=== PATIENT | female | born 1930 | race Caucasian/White ===

== ENCOUNTER 2016-09-10 01:43 | Emergency (ER) | payer OTHER, BC ==
[~2016-09-10] VITALS: Ht 162.6 cm; Wt 102.8 kg
[~2016-09-10 01:43] MED LIST: ALBUTEROL SULF8.5 GM IH; CELECOXIB200 MG PO; CILOSTAZOL50 MG PO; COUMADIN5 MG PO; CYANOCOBALAM1000 MCG PO; CYMBALTA30 MG PO; DOCUSATE SODIU100 MG PO; ELIQUIS5 MG PO; ENALAPRIL MALEAT5 MG PO; ERGOCALCIF50000 UNIT PO; EYE DROP15 ML BOTH EYES; FUROSEMIDE20 MG PO; GABAPENTIN100 MG PO; HYDRALAZIN20 MG/1 ML IM; HYDROCODON-ACE1 EAC7 PO; ICY HOT CREAM35.4 G1 TP; IRON325 MG PO; LASIX20 MG PO; LIDOCAINE700 MG TD; LIPITOR10 MG PO; LOPRESSOR25 MG PO; METOPROLOL TART25 MG PO; MIRALAX17 GM PO; NORCO 5/3251 TABLET PO; PANTOPRAZOLE SO40 MG PO; SENNA-TIME S T1 EACH PO; TRAMADOL HCL150 MG PO; TRAMADOL HCL50 MG PO; TYLENOL REGULA325 MG PO; VASOTEC5 MG PO; VITAMIN D2000 UNIT PO; VITAMIN D31000 UNIT PO; XARELTO10 MG PO; XARELTO20 MG PO; ZOFRAN4 MG/2 ML IM; eye drops
[2016-09-10 02:35] LABS: ADD MIUA? NO; BILIRUBIN NEGATIVE; BLOOD NEGATIVE; COLOR YELLOW ((YELLOW)); GLUCOSE (STRIP) NEGATIVE; KETONES NEGATIVE; LEUKOCYTES NEGATIVE; NITRITE NEGATIVE; PH, URINE 6.5 (5-8); PROTEIN (STRIP) NEGATIVE; SPECIFIC GRAVITY 1.014 (1.000-1.030); UCUL ADDED? NO
[2016-09-10 02:50] LABS: EOSINOPHIL (%) 3.6 % (0-5); EOSINOPHIL COUNT 0.3 K/uL (0-0.3); HEMATOCRIT 40.9 % (36.0-46.0); IMMATURE GRANULOCYTE (%) 0.5 % (0.0-0.7); IMMATURE GRANULOCYTE COUNT 0.4 K/uL; LYMPHOCYTE COUNT 3.1 K/uL (1.0-2.8); MCH 28.9 PG (29.0-34.0); MCHC 33.7 G/DL (30.0-36.0); MCV 85.6 FL (83-99); MONOCYTE (%) 12.2 % (3-12); PLATELET COUNT 315 K/uL (156-360); RBC DIS.WIDTH-CV 13.3 % (11.8-14.6); RED BLOOD COUNT 4.78 M/uL (3.80-5.20); WHITE BLOOD COUNT 8.5 K/uL (4.1-10.2)
[2016-09-10 03:07] LABS: CHLORIDE 107 mEq/L (99-109); POTASSIUM 3.6 mEq/L (3.7-5.4); SODIUM 141 mEq/L (136-147)
[2016-09-10 03:09] LABS: GLUCOSE 110 mg/dL (70-99)
[2016-09-10 03:10] LABS: ANION GAP 9 MEQ/L (2-14)
[2016-09-10 03:13] LABS: GFR ESTIMATE (CALCULATED) 50 mL/min/; UREA NITROGEN (BUN) 15 mg/dL (9-23)
[2016-09-10 03:15] LABS: CREATINE KINASE 77 IU/L (1-294)
[2016-09-10 03:19] LABS: TROP-I INTERPRETATION NEGATIVE; TROPONIN-I < 0.01 ng/mL (0.0-0.30)
[2016-09-10 04:35] VITALS: BP 120/60
== END 2016-09-10 04:38 | disposition home or self-care (01) ==
LOC: EME → EDBD 01:43 → EME 01:43
PROVIDERS: Emergency Medicine
DX: R26.2 Difficulty in walking, not elsewhere classified (principal); Z91.81 History of falling; R41.82 Altered mental status, unspecified; I48.91 Unspecified atrial fibrillation; I10 Essential (primary) hypertension; G89.29 Other chronic pain; Z87.891 Personal history of nicotine dependence
CPT/HCPCS: 70450; 71010; 80048; 81003; 82550; 84484; 85025; 93005; 99281; 99284

== ENCOUNTER 2016-12-12 18:53 | Emergency (ER) | payer OTHER, BC ==
[~2016-12-12] VITALS: Ht 162.6 cm; Wt 109.1 kg
[2016-12-12 19:50] LABS: HEMATOCRIT 42.1 % (36.0-46.0); MCH 28.6 PG (29.0-34.0); MCHC 32.3 G/DL (30.0-36.0); MCV 88.6 FL (83-99); MEAN PLAT.VOLUME 9.4 uM^3 (9.5-12.4); PLATELET COUNT 328 K/uL (156-360); RBC DIS.WIDTH-CV 13.5 % (11.8-14.6); RBC DIS.WIDTH-SD 44.5 % (39-53); RED BLOOD COUNT 4.75 M/uL (3.80-5.20)
[2016-12-12 19:57] LABS: CHLORIDE 106 mEq/L (99-109); POTASSIUM 4.2 mEq/L (3.7-5.4); SODIUM 142 mEq/L (136-147)
[2016-12-12 19:59] LABS: GLUCOSE 108 mg/dL (70-99)
[2016-12-12 20:01] LABS: ANION GAP 5 MEQ/L (2-14)
[2016-12-12 20:03] LABS: GFR ESTIMATE (CALCULATED) 50 mL/min/
[2016-12-12 20:04] LABS: UREA NITROGEN (BUN) 14 mg/dL (9-23)
[2016-12-12 20:19] LABS: TROP-I INTERPRETATION NEGATIVE; TROPONIN-I < 0.01 ng/mL (0.0-0.30)
[2016-12-12 20:49] LABS: PROTHROMBIN TIME 10.3 (9.2-11.2); PTT 25.9 (25-32)
[2016-12-12] MEDS ORDERED: VENTOLIN HFA18 GM IH (22:25)
[2016-12-12] MEDS ORDERED: ZITHROMAX Z-PA250 MG PO (22:25)
[2016-12-12 23:00] VITALS: BP 149/90
== END 2016-12-12 23:02 | disposition home or self-care (01) ==
LOC: EME 18:53
DX: J40 Bronchitis, not specified as acute or chronic (principal); I48.91 Unspecified atrial fibrillation; J45.909 Unspecified asthma, uncomplicated; I10 Essential (primary) hypertension; Z79.01 Long term (current) use of anticoagulants; Z87.891 Personal history of nicotine dependence
CPT/HCPCS: 71020; 80048; 84484; 85027; 85610; 85730; 93005; 99281; 99284

== ENCOUNTER 2017-05-19 22:29 | Emergency (ER) | payer OTHER, BC ==
[~2017-05-19] VITALS: Ht 162.6 cm; Wt 102.5 kg
[~2017-05-19 22:29] MED LIST changes: +VENTOLIN HFA18 GM IH; +ZITHROMAX Z-PA250 MG PO
[2017-05-19 23:23] LABS: HEMATOCRIT 40.7 % (36.0-46.0); MCHC 32.7 G/DL (30.0-36.0); MCV 88.7 FL (83-99); MEAN PLAT.VOLUME 9.9 uM^3 (9.5-12.4); PLATELET COUNT 261 K/uL (156-360); RBC DIS.WIDTH-CV 13.5 % (11.8-14.6); RBC DIS.WIDTH-SD 44.2 % (39-53); RED BLOOD COUNT 4.59 M/uL (3.80-5.20); WHITE BLOOD COUNT 7.8 K/uL (4.1-10.2)
[2017-05-19 23:30] LABS: INTER. NORMALIZED RATIO 1.1; PROTHROMBIN TIME 12.1 SEC (10.2-12.9)
[2017-05-19 23:32] LABS: PTT 30.5 SEC (25-37)
[2017-05-19 23:34] LABS: CHLORIDE 108 mEq/L (99-109); POTASSIUM 3.7 mEq/L (3.7-5.4); SODIUM 144 mEq/L (136-147)
[2017-05-19 23:36] LABS: GLUCOSE 107 mg/dL (70-99)
[2017-05-19 23:37] LABS: ANION GAP 10 MEQ/L (2-14)
[2017-05-19 23:40] LABS: GFR ESTIMATE (CALCULATED) 50 mL/min/; UREA NITROGEN (BUN) 15 mg/dL (9-23)
[2017-05-20 01:35] VITALS: BP 148/77
== END 2017-05-20 01:36 | disposition home or self-care (01) ==
LOC: EME → TRA 22:29 → EDBD 22:29 → TRA 05-20 01:36
PROVIDERS: Emergency Medicine
PROC: 0HQ0XZZ Repair Scalp Skin, External Approach (ICD-10-PCS; principal; 2017-05-19)
DX: S01.01XA Laceration without foreign body of scalp, initial encounter (principal); W01.190A Fall on same level from slipping, tripping and stumbling with subsequent striking against furniture, initial encounter; Y92.003 Bedroom of unspecified non-institutional (private) residence as the place of occurrence of the external cause; M85.68 Other cyst of bone, other site; I48.91 Unspecified atrial fibrillation; Z79.01 Long term (current) use of anticoagulants; I10 Essential (primary) hypertension; Z87.891 Personal history of nicotine dependence
CPT/HCPCS: 70450; 72125; 80048; 85027; 85610; 85730; 99281; 99283

== ENCOUNTER 2017-06-13 15:16 | Emergency (ER) | payer OTHER, BC ==
[~2017-06-13] VITALS: Ht 162.6 cm; Wt 104.9 kg
[2017-06-13 17:04] LABS: HEMATOCRIT 41.9 % (36.0-46.0); MCH 29.4 PG (29.0-34.0); MCHC 32.9 G/DL (30.0-36.0); MCV 89.3 FL (83-99); MEAN PLAT.VOLUME 9.9 uM^3 (9.5-12.4); PLATELET COUNT 248 K/uL (156-360); RBC DIS.WIDTH-CV 13.4 % (11.8-14.6); RBC DIS.WIDTH-SD 43.9 % (39-53); RED BLOOD COUNT 4.69 M/uL (3.80-5.20); WHITE BLOOD COUNT 7.5 K/uL (4.1-10.2)
[2017-06-13 17:19] LABS: CHLORIDE 104 mEq/L (99-109); POTASSIUM 3.7 mEq/L (3.7-5.4); SODIUM 140 mEq/L (136-147)
[2017-06-13 17:21] LABS: GLUCOSE 116 mg/dL (70-99)
[2017-06-13 17:23] LABS: ANION GAP 7 MEQ/L (2-14)
[2017-06-13 17:25] LABS: GFR ESTIMATE (CALCULATED) 56 mL/min/
[2017-06-13 17:26] LABS: UREA NITROGEN (BUN) 18 mg/dL (9-23)
[2017-06-13 18:08] LABS: ADD MIUA? YES; BILIRUBIN NEGATIVE; BLOOD NEGATIVE; COLOR YELLOW ((YELLOW)); GLUCOSE (STRIP) NEGATIVE; KETONES NEGATIVE; LEUKOCYTES LARGE; NITRITE POSITIVE; PROTEIN (STRIP) NEGATIVE; SPECIFIC GRAVITY 1.013 (1.000-1.030); UROBILINOGEN 0.2 MG/DL (0.2-1.0)
[2017-06-13 18:16] LABS: BACTERIA RARE /HPF; EPITHELIAL CELLS RARE /HPF; MUCUS TRACE /LPF; RED BLOOD CELLS 0-5 /HPF (0-5); UCUL ADDED? YES; WHITE BLOOD CELLS 20-30 /HPF (0-5)
[2017-06-13] MEDS ORDERED: KEFLEX500 MG PO (18:22)
[2017-06-13 19:40] VITALS: BP 129/94
== END 2017-06-13 19:50 | disposition home or self-care (01) ==
LOC: EME 15:16
PROVIDERS: Physician Assistant
DX: N30.00 Acute cystitis without hematuria (principal); R41.0 Disorientation, unspecified; I10 Essential (primary) hypertension; J45.909 Unspecified asthma, uncomplicated; Z79.01 Long term (current) use of anticoagulants; Z90.710 Acquired absence of both cervix and uterus; Z87.891 Personal history of nicotine dependence
CPT/HCPCS: 80048; 81003; 83605; 85027; 87077; 87086; 87186; 99281; 99285; J0696; J7030; J7050

== ENCOUNTER 2017-07-01 10:44 | Emergency (ER) | payer OTHER, BC ==
[~2017-07-01] VITALS: Ht 162.6 cm; Wt 101.7 kg
[~2017-07-01 10:44] MED LIST changes: +KEFLEX500 MG PO
[2017-07-01 12:02] LABS: INFLUENZA A VIRAL ANTIGEN NEGATIVE; INFLUENZA B VIRAL ANTIGEN NEGATIVE
[2017-07-01 12:23] LABS: EOSINOPHIL (%) 1.5 % (0-5); EOSINOPHIL COUNT 0.2 K/uL (0-0.3); HEMATOCRIT 44.6 % (36.0-46.0); IMMATURE GRANULOCYTE (%) 0.6 % (0.0-0.7); IMMATURE GRANULOCYTE COUNT 0.1 K/uL; INSTRUMENT ABS NEUTROPHIL CT 6.9 K/uL; MCH 29.4 PG (29.0-34.0); MCHC 32.7 G/DL (30.0-36.0); MCV 89.7 FL (83-99); MEAN PLAT.VOLUME 9.7 uM^3 (9.5-12.4); MONOCYTE (%) 15.5 % (3-12); MONOCYTE COUNT 1.7 K/uL (0-0.8); NEUTROPHIL (%) 63.4 % (45-76); NEUTROPHIL COUNT 6.9 K/uL (1.8-6.4); PLATELET COUNT 261 K/uL (156-360); RBC DIS.WIDTH-CV 13.4 % (11.8-14.6); RBC DIS.WIDTH-SD 44.4 % (39-53); RED BLOOD COUNT 4.97 M/uL (3.80-5.20); WHITE BLOOD COUNT 10.8 K/uL (4.1-10.2)
[2017-07-01 12:35] LABS: CHLORIDE 106 mEq/L (99-109)
[2017-07-01 12:36] LABS: POTASSIUM 3.8 mEq/L (3.7-5.4); SODIUM 142 mEq/L (136-147)
[2017-07-01 12:37] LABS: GLUCOSE 115 mg/dL (70-99)
[2017-07-01 12:39] LABS: ANION GAP 10 MEQ/L (2-14)
[2017-07-01 12:41] LABS: GFR ESTIMATE (CALCULATED) 56 mL/min/
[2017-07-01 12:42] LABS: UREA NITROGEN (BUN) 15 mg/dL (9-23)
[2017-07-01 12:52] LABS: ADD MIUA? NO; BILIRUBIN NEGATIVE; BLOOD NEGATIVE; COLOR YELLOW ((YELLOW)); GLUCOSE (STRIP) NEGATIVE; KETONES NEGATIVE; LEUKOCYTES NEGATIVE; NITRITE NEGATIVE; PROTEIN (STRIP) NEGATIVE; SPECIFIC GRAVITY 1.017 (1.000-1.030); UCUL ADDED? NO
[2017-07-01] MEDS ORDERED: ZITHROMAX Z-PA250 MG PO (13:43)
[2017-07-01 14:55] VITALS: BP 118/86
[2017-07-02] MEDS ORDERED: PREDNISONE20 MG PO (11:31)
== END 2017-07-01 14:58 | disposition home or self-care (01) ==
LOC: EME 10:44
PROVIDERS: Emergency Medicine
DX: J20.9 Acute bronchitis, unspecified (principal); J45.909 Unspecified asthma, uncomplicated; Z87.891 Personal history of nicotine dependence; Z96.652 Presence of left artificial knee joint
CPT/HCPCS: 71010; 80048; 81003; 85025; 87502; 93005; 99281; 99285

== ENCOUNTER 2017-07-20 11:11 | Inpatient (IN) | payer OTHER, BC ==
[~2017-07-20] VITALS: Ht 154.9 cm; Wt 98.0 kg
[~2017-07-20 11:11] MED LIST changes: +PREDNISONE20 MG PO
[2017-07-20 11:27] LABS: CREATININE 1.2 mg/dL (0.6-1.3); POTASSIUM 3.8 mEq/L (3.7-5.4)
[2017-07-20 11:32] LABS: BASOPHIL COUNT 0.1 K/uL (0-0.1); EOSINOPHIL (%) 3.2 % (0-5); EOSINOPHIL COUNT 0.3 K/uL (0-0.3); HEMATOCRIT 42.2 % (36.0-46.0); IMMATURE GRANULOCYTE (%) 1.3 % (0.0-0.7); IMMATURE GRANULOCYTE COUNT 0.1 K/uL; INSTRUMENT ABS NEUTROPHIL CT 4.9 K/uL; LYMPHOCYTE COUNT 3.2 K/uL (1.0-2.8); MCH 29.2 PG (29.0-34.0); MCV 91.1 FL (83-99); MEAN PLAT.VOLUME 9.7 uM^3 (9.5-12.4); MONOCYTE (%) 11.7 % (3-12); MONOCYTE COUNT 1.2 K/uL (0-0.8); NEUTROPHIL COUNT 4.9 K/uL (1.8-6.4); RBC DIS.WIDTH-CV 14.2 % (11.8-14.6); RBC DIS.WIDTH-SD 47.3 % (39-53); RED BLOOD COUNT 4.63 M/uL (3.80-5.20); WHITE BLOOD COUNT 9.8 K/uL (4.1-10.2)
[2017-07-20 11:33] LABS: PLATELET COUNT 321 K/uL (156-360)
[2017-07-20 11:39] LABS: INTER. NORMALIZED RATIO 1.2; PROTHROMBIN TIME 13.2 SEC (10.2-12.9)
[2017-07-20 11:41] LABS: PTT 27.9 SEC (25-37)
[2017-07-20 11:42] LABS: AMYLASE 25 IU/L (1-118); CHLORIDE 106 mEq/L (99-109); POTASSIUM 3.8 mEq/L (3.7-5.4); SODIUM 140 mEq/L (136-147)
[2017-07-20 11:44] LABS: GLUCOSE 94 mg/dL (70-99)
[2017-07-20 11:45] LABS: ANION GAP 6 MEQ/L (2-14)
[2017-07-20 11:47] LABS: SERUM ETHYL ALCOHOL < 10 mg/dL
[2017-07-20 11:48] LABS: GFR ESTIMATE (CALCULATED) 45 mL/min/
[2017-07-20 11:49] LABS: UREA NITROGEN (BUN) 17 mg/dL (9-23)
[2017-07-20 11:51] LABS: LIPASE 22 U/L (1.0-51.0)
[2017-07-20 11:53] LABS: TROP-I INTERPRETATION NEGATIVE; TROPONIN-I < 0.01 ng/mL (0.0-0.30)
[2017-07-20] MEDS ORDERED: MYRBETRIQ50 MG PO (14:00)
[2017-07-20 15:02] LABS: ADD MIUA? NO; BILIRUBIN NEGATIVE; BLOOD NEGATIVE; COLOR YELLOW ((YELLOW)); GLUCOSE (STRIP) NEGATIVE; KETONES NEGATIVE; LEUKOCYTES NEGATIVE; NITRITE NEGATIVE; PROTEIN (STRIP) NEGATIVE; SPECIFIC GRAVITY 1.013 (1.000-1.030); UCUL ADDED? NO; UROBILINOGEN 0.2 MG/DL (0.2-1.0)
[2017-07-20 15:34] LABS: AMPHETAMINE NEGATIVE (500 ng/mL); BARBITURATES NEGATIVE (200 ng/mL); BENZODIAZEPINES NEGATIVE (150 ng/mL); COCAINE NEGATIVE (150 ng/mL); INTERNAL CONTROLS VALID? YES; METHADONE NEGATIVE (200 ng/mL); METHAMPHETAMINE NEGATIVE (500 ng/mL); OPIATES (MORPHINE) NEGATIVE (100 ng/mL); OXYCODONE NEGATIVE (100 ng/mL); PHENCYCLIDINE NEGATIVE (25 ng/mL); PROPOXYPHENE NEGATIVE (300 ng/mL); THC CANNABINOIDS NEGATIVE (50 ng/mL); TRICYCLIC ANTIDEPRESSANTS NEGATIVE (300 ng/mL)
[2017-07-20 16:11] VITALS: BP 145/89
[2017-07-20 16:15] LABS: Estimated Average Glucose 126 mg/dL (70-123)
[2017-07-20 16:31] LABS: HDL CHOLESTEROL 49 MG/DL (Desirable>=50); LDL CHOLESTEROL 125 mg/dL (Desirable<100); NON-HDL CHOLESTEROL 158 mg/dL (Desirable<160); TOTAL CHOLESTEROL 207 mg/dL (Desirable<200); TRIGLYCERIDES 164 MG/DL (Normal: <150)
[2017-07-20 18:19] LABS: TROP-I INTERPRETATION NEGATIVE; TROPONIN-I < 0.01 ng/mL (0.0-0.30)
[2017-07-20 20:02] VITALS: BP 142/68
[2017-07-20 23:20] VITALS: BP 133/88
[2017-07-21 01:16] LABS: TROP-I INTERPRETATION NEGATIVE; TROPONIN-I 0.01 ng/mL (0.0-0.30)
[2017-07-21 03:45] VITALS: BP 172/77
[2017-07-21 07:25] VITALS: BP 116/73
[2017-07-21 10:48] LABS: CHLORIDE 108 mEq/L (99-109); POTASSIUM 4.2 mEq/L (3.7-5.4); SODIUM 141 mEq/L (136-147)
[2017-07-21 10:50] LABS: GLUCOSE 99 mg/dL (70-99)
[2017-07-21 10:51] LABS: ANION GAP 8 MEQ/L (2-14)
[2017-07-21 10:54] LABS: GFR ESTIMATE (CALCULATED) > 59 mL/min/
[2017-07-21 10:55] LABS: UREA NITROGEN (BUN) 11 mg/dL (9-23)
[2017-07-21 11:56] VITALS: BP 130/62
[2017-07-21 16:39] VITALS: BP 147/79
[2017-07-21 20:00] VITALS: BP 111/60
[2017-07-22 00:45] VITALS: BP 110/59
[2017-07-22 04:28] VITALS: BP 112/65
[2017-07-22 07:16] VITALS: BP 155/96
[2017-07-22 08:35] LABS: BASOPHIL COUNT 0.1 K/uL (0-0.1); EOSINOPHIL (%) 4.5 % (0-5); EOSINOPHIL COUNT 0.3 K/uL (0-0.3); HEMATOCRIT 44.3 % (36.0-46.0); IMMATURE GRANULOCYTE (%) 0.8 % (0.0-0.7); IMMATURE GRANULOCYTE COUNT 0.1 K/uL; INSTRUMENT ABS NEUTROPHIL CT 3.6 K/uL; LYMPHOCYTE COUNT 2.2 K/uL (1.0-2.8); MCH 29.9 PG (29.0-34.0); MCV 90.6 FL (83-99); MONOCYTE (%) 11.9 % (3-12); MONOCYTE COUNT 0.9 K/uL (0-0.8); NEUTROPHIL (%) 50.7 % (45-76); NEUTROPHIL COUNT 3.6 K/uL (1.8-6.4); PLATELET COUNT 302 K/uL (156-360); RBC DIS.WIDTH-CV 13.9 % (11.8-14.6); RED BLOOD COUNT 4.89 M/uL (3.80-5.20); WHITE BLOOD COUNT 7.2 K/uL (4.1-10.2)
[2017-07-22 08:56] LABS: ALKALINE PHOSPHATASE 59 IU/L (3-129); ANION GAP 8 MEQ/L (2-14); CHLORIDE 109 MEQ/L (99-109); GFR ESTIMATE (CALCULATED) > 59 mL/min/; GLUCOSE 95 mg/dL (70-99); POTASSIUM 4.1 MEQ/L (3.7-5.4); SAMPLE HEMOLYSIS CHECK 0; SAMPLE ICTERIC CHECK 0; SAMPLE LIPEMIA CHECK 0; SODIUM 141 MEQ/L (136-147); TOTAL BILIRUBIN 1.6 MG/DL (0.0-1.0); UREA NITROGEN (BUN) 10 mg/dL (9-23)
[2017-07-22 10:58] VITALS: BP 150/100
[2017-07-22 16:41] VITALS: BP 151/88
[2017-07-22 20:30] VITALS: BP 122/80
[2017-07-22 20:59] LABS: INTER. NORMALIZED RATIO 1.2; PROTHROMBIN TIME 13.5 SEC (10.2-12.9)
[2017-07-22 21:02] LABS: PTT 81.5 SEC (25-37)
[2017-07-23] VITALS (7 sets, daily range): BP systolic 98–134; BP diastolic 52–87
[2017-07-23 03:14] LABS: EOSINOPHIL (%) 4.3 % (0-5); EOSINOPHIL COUNT 0.3 K/uL (0-0.3); HEMATOCRIT 45.6 % (36.0-46.0); IMMATURE GRANULOCYTE (%) 0.7 % (0.0-0.7); IMMATURE GRANULOCYTE COUNT 0.1 K/uL; INSTRUMENT ABS NEUTROPHIL CT 3.1 K/uL; LYMPHOCYTE COUNT 2.7 K/uL (1.0-2.8); MCH 29.2 PG (29.0-34.0); MCHC 32.5 G/DL (30.0-36.0); MCV 90.1 FL (83-99); MEAN PLAT.VOLUME 9.5 uM^3 (9.5-12.4); MONOCYTE (%) 13.3 % (3-12); NEUTROPHIL (%) 43.2 % (45-76); NEUTROPHIL COUNT 3.1 K/uL (1.8-6.4); PLATELET COUNT 306 K/uL (156-360); RBC DIS.WIDTH-SD 45.8 % (39-53); RED BLOOD COUNT 5.06 M/uL (3.80-5.20); WHITE BLOOD COUNT 7.2 K/uL (4.1-10.2)
[2017-07-23 03:37] LABS: CHLORIDE 109 mEq/L (99-109); POTASSIUM 4.4 mEq/L (3.7-5.4); SODIUM 141 mEq/L (136-147)
[2017-07-23 03:39] LABS: GLUCOSE 109 mg/dL (70-99)
[2017-07-23 03:40] LABS: ANION GAP 9 MEQ/L (2-14)
[2017-07-23 03:43] LABS: GFR ESTIMATE (CALCULATED) > 59 mL/min/
[2017-07-23 03:44] LABS: UREA NITROGEN (BUN) 11 mg/dL (9-23)
[2017-07-23 16:50] LABS: POINT-OF-CARE METER ID UU14174216; POINT-OF-CARE USER ID ENVKC36
[2017-07-24 01:00] VITALS: BP 110/80
[2017-07-24 05:39] LABS: BASOPHIL COUNT 0.1 K/uL (0-0.1); EOSINOPHIL (%) 4.9 % (0-5); EOSINOPHIL COUNT 0.4 K/uL (0-0.3); HEMATOCRIT 42.8 % (36.0-46.0); IMMATURE GRANULOCYTE (%) 0.9 % (0.0-0.7); IMMATURE GRANULOCYTE COUNT 0.1 K/uL; INSTRUMENT ABS NEUTROPHIL CT 3.8 K/uL; LYMPHOCYTE COUNT 2.7 K/uL (1.0-2.8); MCH 29.5 PG (29.0-34.0); MCHC 32.9 G/DL (30.0-36.0); MCV 89.5 FL (83-99); MEAN PLAT.VOLUME 10.1 uM^3 (9.5-12.4); MONOCYTE (%) 14.4 % (3-12); MONOCYTE COUNT 1.2 K/uL (0-0.8); NEUTROPHIL COUNT 3.8 K/uL (1.8-6.4); PLATELET COUNT 294 K/uL (156-360); RBC DIS.WIDTH-CV 14.1 % (11.8-14.6); RBC DIS.WIDTH-SD 45.7 % (39-53); RED BLOOD COUNT 4.78 M/uL (3.80-5.20); WHITE BLOOD COUNT 8.2 K/uL (4.1-10.2)
[2017-07-24 06:00] VITALS: BP 117/84
[2017-07-24 06:00] LABS: ANION GAP 10 MEQ/L (2-14); CHLORIDE 109 MEQ/L (99-109); GFR ESTIMATE (CALCULATED) > 59 mL/min/; GLUCOSE 100 mg/dL (70-99); POTASSIUM 3.9 MEQ/L (3.7-5.4); SAMPLE HEMOLYSIS CHECK 0; SAMPLE ICTERIC CHECK 0; SAMPLE LIPEMIA CHECK 0; SODIUM 142 MEQ/L (136-147); UREA NITROGEN (BUN) 13 mg/dL (9-23)
[2017-07-24 07:10] VITALS: BP 174/99
[2017-07-24 11:13] VITALS: BP 145/68
[2017-07-24] MEDS ORDERED: PRAVASTATIN SOD40 MG PO (12:18)
[2017-07-24] MEDS ORDERED: ASPIR-LOW81 MG PO (12:18)
== END 2017-07-24 15:37 | DRG 65 ==
LOC: EME → EDBD 11:11 → EDOF 13:20 → 4EAST 13:20 → ENRESERV 13:33 → 4EAST 15:44 → ENPENDDIS 07-24 → 4EAST 07-24 10:09
PROVIDERS: Emergency Medicine; Hospitalist; Internal Medicine
DX: I63.9 Cerebral infarction, unspecified (principal); G81.91 Hemiplegia, unspecified affecting right dominant side; R47.01 Aphasia; R29.810 Facial weakness; G91.2 (Idiopathic) normal pressure hydrocephalus; I11.9 Hypertensive heart disease without heart failure; E78.5 Hyperlipidemia, unspecified; I48.2 Chronic atrial fibrillation; F03.90 Unspecified dementia, unspecified severity, without behavioral disturbance, psychotic disturbance, mood disturbance, and anxiety; I70.212 Atherosclerosis of native arteries of extremities with intermittent claudication, left leg; M48.061 Spinal stenosis, lumbar region without neurogenic claudication; Z96.652 Presence of left artificial knee joint; E66.9 Obesity, unspecified; Z68.41 Body mass index [BMI] 40.0-44.9, adult; Z23 Encounter for immunization; Z79.01 Long term (current) use of anticoagulants
CPT/HCPCS: 70450; 70496; 70498; 70551; 71010; 80047; 80048; 80053; 80061; 81003; 82150; 82948; 83036; 83690; 83880; 84484; 85025; 85610; 85651; 85730; 86850; 86900; 86901; 90686; 92507 GN; 92523 GN; 92610 GN; 93005; 93306; 97530 GP; 99202; 99281; 99285; G0480; J1160; J7030; J7120

== ENCOUNTER 2017-08-07 16:48 | Inpatient (IN) | payer OTHER, BC ==
[~2017-08-07] VITALS: Ht 160 cm; Wt 103.5 kg
[~2017-08-07 16:48] MED LIST changes: +ASPIR-LOW81 MG PO; +MYRBETRIQ50 MG PO; +PRAVASTATIN SOD40 MG PO
[2017-08-07 17:57] LABS: BASOPHIL COUNT 0.1 K/uL (0-0.1); EOSINOPHIL (%) 0.9 % (0-5); EOSINOPHIL COUNT 0.1 K/uL (0-0.3); HEMATOCRIT 41.3 % (36.0-46.0); IMMATURE GRANULOCYTE (%) 1.9 % (0.0-0.7); IMMATURE GRANULOCYTE COUNT 0.3 K/uL; INSTRUMENT ABS NEUTROPHIL CT 10.6 K/uL; LYMPHOCYTE COUNT 2.4 K/uL (1.0-2.8); MCH 29.3 PG (29.0-34.0); MCV 91.8 FL (83-99); MEAN PLAT.VOLUME 9.6 uM^3 (9.5-12.4); MONOCYTE (%) 9.9 % (3-12); MONOCYTE COUNT 1.5 K/uL (0-0.8); NEUTROPHIL (%) 70.5 % (45-76); NEUTROPHIL COUNT 10.6 K/uL (1.8-6.4); NRBC (%) 0.1 /100 WBC (0-0); PLATELET COUNT 302 K/uL (156-360); RBC DIS.WIDTH-CV 14.3 % (11.8-14.6); RBC DIS.WIDTH-SD 48.5 % (39-53)
[2017-08-07 18:05] LABS: CHLORIDE 109 mEq/L (99-109); POTASSIUM 3.9 mEq/L (3.7-5.4); SODIUM 143 mEq/L (136-147)
[2017-08-07 18:06] LABS: GLUCOSE 150 mg/dL (70-99)
[2017-08-07 18:08] LABS: ANION GAP 7 MEQ/L (2-14)
[2017-08-07 18:10] LABS: GFR ESTIMATE (CALCULATED) 56 mL/min/
[2017-08-07 18:17] LABS: UREA NITROGEN (BUN) 25 mg/dL (9-23)
[2017-08-07 18:18] LABS: PROTHROMBIN TIME 23.3 SEC (10.2-12.9); PTT 32.7 SEC (25-37); TROP-I INTERPRETATION NEGATIVE; TROPONIN-I 0.01 ng/mL (0.0-0.30)
[2017-08-07] MEDS ORDERED: ASPIR 8181 M1 PO (21:15)
[2017-08-07] MEDS ORDERED: CLARITIN,ALAVAR10 MG PO (21:16)
[2017-08-07] MEDS ORDERED: PRILOSEC20 MG PO (21:18)
[2017-08-07] MEDS ORDERED: FLONASE16 G1 BOTH NARES (21:19)
[2017-08-07] MEDS ORDERED: ALBUTEROL0.63 MG/3 IH (21:20)
[2017-08-07] MEDS ORDERED: SALINE SOLUTIO360 ML IH (21:21)
[2017-08-07] MEDS ORDERED: MIRALAX119 GM PO (21:22)
[2017-08-07] MEDS ORDERED: PHILLIPS'400 MG/5 M PO (21:22)
[2017-08-07] MEDS ORDERED: DULCOLAX10 MG PR (21:22)
[2017-08-07] MEDS ORDERED: PHENERGAN-CODE120 ML PO (21:23)
[2017-08-07] MEDS ORDERED: TESSALON PERLE100 MG PO (21:24)
[2017-08-07 23:03] LABS: ADD MIUA? YES; BILIRUBIN NEGATIVE; BLOOD SMALL; COLOR YELLOW ((YELLOW)); GLUCOSE (STRIP) NEGATIVE; KETONES NEGATIVE; LEUKOCYTES TRACE; NITRITE NEGATIVE; PROTEIN (STRIP) NEGATIVE; SPECIFIC GRAVITY 1.012 (1.000-1.030)
[2017-08-07 23:09] LABS: BACTERIA RARE /HPF; EPITHELIAL CELLS 1+ /HPF; MUCUS TRACE /LPF; RED BLOOD CELLS 0-5 /HPF (0-5); UCUL ADDED? NO; WHITE BLOOD CELLS 0-5 /HPF (0-5)
[2017-08-08 07:06] VITALS: BP 144/71
[2017-08-08 08:58] LABS: MCH 28.7 PG (29.0-34.0); MCHC 31.8 G/DL (30.0-36.0); MCV 90.3 FL (83-99); MEAN PLAT.VOLUME 9.7 uM^3 (9.5-12.4); NRBC (%) 0.2 /100 WBC (0-0); PLATELET COUNT 321 K/uL (156-360); RBC DIS.WIDTH-CV 13.9 % (11.8-14.6); RBC DIS.WIDTH-SD 46.2 % (39-53); RED BLOOD COUNT 4.87 M/uL (3.80-5.20); WHITE BLOOD COUNT 12.9 K/uL (4.1-10.2)
[2017-08-08 09:28] LABS: ANION GAP 7 MEQ/L (2-14); CHLORIDE 104 MEQ/L (99-109); GFR ESTIMATE (CALCULATED) > 59 mL/min/; GLUCOSE 114 mg/dL (70-99); POTASSIUM 3.6 MEQ/L (3.7-5.4); SAMPLE HEMOLYSIS CHECK 0; SAMPLE ICTERIC CHECK 0; SAMPLE LIPEMIA CHECK 0; SODIUM 143 MEQ/L (136-147); UREA NITROGEN (BUN) 21 mg/dL (9-23)
[2017-08-08 16:42] VITALS: BP 133/72
[2017-08-08 19:40] VITALS: BP 132/79
[2017-08-09] VITALS (7 sets, daily range): BP systolic 131–176; BP diastolic 56–92
[2017-08-09 11:09] LABS: HEMATOCRIT 43.8 % (36.0-46.0); MCH 29.7 PG (29.0-34.0); MCHC 32.2 G/DL (30.0-36.0); MCV 92.4 FL (83-99); MEAN PLAT.VOLUME 9.8 uM^3 (9.5-12.4); PLATELET COUNT 345 K/uL (156-360); RBC DIS.WIDTH-SD 47.2 % (39-53); RED BLOOD COUNT 4.74 M/uL (3.80-5.20); WHITE BLOOD COUNT 14.2 K/uL (4.1-10.2)
[2017-08-09 11:35] LABS: ANION GAP 7 MEQ/L (2-14); CHLORIDE 105 MEQ/L (99-109); GFR ESTIMATE (CALCULATED) 56 mL/min/; GLUCOSE 145 mg/dL (70-99); POTASSIUM 4.1 MEQ/L (3.7-5.4); SAMPLE HEMOLYSIS CHECK 0; SAMPLE ICTERIC CHECK 0; SAMPLE LIPEMIA CHECK 0; SODIUM 144 MEQ/L (136-147); UREA NITROGEN (BUN) 25 mg/dL (9-23)
[2017-08-09 21:38] LABS: METH RESISTANT S AUREUS PCR NEGATIVE (NEGATIVE)
[2017-08-09 21:40] LABS: PROBE CHECK PASS; SPECIMEN PROCESSING CONTROL PASS
[2017-08-10 04:17] VITALS: BP 142/74
[2017-08-10 06:56] VITALS: BP 152/72
[2017-08-10 11:10] VITALS: BP 142/86
[2017-08-10 15:06] VITALS: BP 133/65
[2017-08-10 19:20] VITALS: BP 134/81
[2017-08-11 00:05] VITALS: BP 169/77
[2017-08-11 04:23] VITALS: BP 144/82
[2017-08-11 06:59] VITALS: BP 154/76
[2017-08-11 09:18] LABS: HEMATOCRIT 45.2 % (36.0-46.0); MCH 29.5 PG (29.0-34.0); MCHC 32.1 G/DL (30.0-36.0); MCV 91.9 FL (83-99); MEAN PLAT.VOLUME 9.7 uM^3 (9.5-12.4); PLATELET COUNT 388 K/uL (156-360); RBC DIS.WIDTH-CV 13.9 % (11.8-14.6); RBC DIS.WIDTH-SD 46.7 % (39-53); RED BLOOD COUNT 4.92 M/uL (3.80-5.20); WHITE BLOOD COUNT 22.7 K/uL (4.1-10.2)
[2017-08-11 09:39] LABS: ANION GAP 8 MEQ/L (2-14); CHLORIDE 105 MEQ/L (99-109); GFR ESTIMATE (CALCULATED) 50 mL/min/; GLUCOSE 145 mg/dL (70-99); POTASSIUM 4.3 MEQ/L (3.7-5.4); SAMPLE HEMOLYSIS CHECK 0; SAMPLE ICTERIC CHECK 0; SAMPLE LIPEMIA CHECK 0; SODIUM 146 MEQ/L (136-147); UREA NITROGEN (BUN) 36 mg/dL (9-23)
[2017-08-11 11:04] VITALS: BP 151/73
[2017-08-11 14:03] LABS: ADD MIUA? YES; BILIRUBIN NEGATIVE; BLOOD LARGE; COLOR AMBER ((YELLOW)); GLUCOSE (STRIP) NEGATIVE; KETONES NEGATIVE; LEUKOCYTES SMALL; NITRITE NEGATIVE; PROTEIN (STRIP) NEGATIVE; SPECIFIC GRAVITY 1.014 (1.000-1.030)
[2017-08-11 14:23] LABS: BACTERIA 3+ /HPF; BUDDING YEAST 3+; EPITHELIAL CELLS 2+ /HPF; MUCUS TRACE /LPF; RED BLOOD CELLS 40-50 /HPF (0-5); UCUL ADDED? YES; WHITE BLOOD CELLS 30-40 /HPF (0-5); WHITE BLOOD CELLS CLUMP FEW /HPF (0-5)
[2017-08-11 14:33] LABS: INTER. NORMALIZED RATIO 1.4; PROTHROMBIN TIME 16.4 SEC (10.2-12.9)
[2017-08-11 15:04] VITALS: BP 164/77
[2017-08-11 19:46] VITALS: BP 185/97
[2017-08-12 00:19] VITALS: BP 153/69
[2017-08-12 03:42] VITALS: BP 161/82
[2017-08-12 07:02] LABS: HEMATOCRIT 45.5 % (36.0-46.0); MCH 28.9 PG (29.0-34.0); MCHC 31.6 G/DL (30.0-36.0); MCV 91.4 FL (83-99); MEAN PLAT.VOLUME 9.7 uM^3 (9.5-12.4); PLATELET COUNT 440 K/uL (156-360); RBC DIS.WIDTH-CV 13.8 % (11.8-14.6); RBC DIS.WIDTH-SD 46.7 % (39-53); RED BLOOD COUNT 4.98 M/uL (3.80-5.20); WHITE BLOOD COUNT 19.9 K/uL (4.1-10.2)
[2017-08-12 07:35] VITALS: BP 184/81
[2017-08-12 07:40] LABS: INTER. NORMALIZED RATIO 1.3; PROTHROMBIN TIME 15.3 SEC (10.2-12.9)
[2017-08-12 07:40] LABS: ANION GAP 9 MEQ/L (2-14); CHLORIDE 103 MEQ/L (99-109); GFR ESTIMATE (CALCULATED) 45 mL/min/; GLUCOSE 123 mg/dL (70-99); POTASSIUM 4.3 MEQ/L (3.7-5.4); SAMPLE HEMOLYSIS CHECK 0; SAMPLE ICTERIC CHECK 0; SAMPLE LIPEMIA CHECK 0; SODIUM 145 MEQ/L (136-147); UREA NITROGEN (BUN) 37 mg/dL (9-23)
[2017-08-12 12:25] VITALS: BP 148/80
[2017-08-12 19:26] VITALS: BP 176/81
[2017-08-13 00:32] VITALS: BP 129/60
[2017-08-13 03:20] VITALS: BP 129/75
[2017-08-13 06:36] LABS: HEMATOCRIT 44.7 % (36.0-46.0); MCH 29.4 PG (29.0-34.0); MCV 91.8 FL (83-99); MEAN PLAT.VOLUME 9.8 uM^3 (9.5-12.4); PLATELET COUNT 402 K/uL (156-360); RBC DIS.WIDTH-CV 14.1 % (11.8-14.6); RED BLOOD COUNT 4.87 M/uL (3.80-5.20); WHITE BLOOD COUNT 14.4 K/uL (4.1-10.2)
[2017-08-13 07:01] LABS: INTER. NORMALIZED RATIO 1.3; PROTHROMBIN TIME 14.7 SEC (10.2-12.9)
[2017-08-13 07:40] VITALS: BP 135/79
[2017-08-13] MEDS ORDERED: LOPRESSOR50 MG PO (09:50)
[2017-08-13] MEDS ORDERED: FUROSEMIDE20 MG PO (09:50)
[2017-08-13] MEDS ORDERED: LOVENOX100 MG/1 M SC (09:50)
[2017-08-13] MEDS ORDERED: PREDNISONE20 MG PO (09:51)
[2017-08-13 15:44] VITALS: BP 121/59
[2017-08-13] MEDS ORDERED: COUMADIN4 MG PO (16:33)
[2017-08-13] MEDS ORDERED: COUMADIN3 MG PO (16:33)
== END 2017-08-13 19:55 | DRG 189 ==
LOC: EME 16:48 → EDOF 23:40 → 5SOUTH 23:40 → ENRESERV 23:42 → 5SOUTH 08-08 03:18
PROVIDERS: Emergency Medicine; Nurse Practitioner Adult Health; Physician Assistant Medical
DX: J96.21 Acute and chronic respiratory failure with hypoxia (principal); I11.0 Hypertensive heart disease with heart failure; I50.33 Acute on chronic diastolic (congestive) heart failure; J44.0 Chronic obstructive pulmonary disease with (acute) lower respiratory infection; J20.9 Acute bronchitis, unspecified; J44.1 Chronic obstructive pulmonary disease with (acute) exacerbation; G93.41 Metabolic encephalopathy; I63.422 Cerebral infarction due to embolism of left anterior cerebral artery; I63.432 Cerebral infarction due to embolism of left posterior cerebral artery; F32.9 Major depressive disorder, single episode, unspecified; G89.29 Other chronic pain; M48.061 Spinal stenosis, lumbar region without neurogenic claudication; E78.5 Hyperlipidemia, unspecified; F01.51 Vascular dementia, unspecified severity, with behavioral disturbance; I48.2 Chronic atrial fibrillation; I70.212 Atherosclerosis of native arteries of extremities with intermittent claudication, left leg; K21.9 Gastro-esophageal reflux disease without esophagitis; R32 Unspecified urinary incontinence; E66.01 Morbid (severe) obesity due to excess calories; Z96.652 Presence of left artificial knee joint; I69.351 Hemiplegia and hemiparesis following cerebral infarction affecting right dominant side; I69.320 Aphasia following cerebral infarction; Z79.01 Long term (current) use of anticoagulants; Z79.82 Long term (current) use of aspirin; Z91.81 History of falling; Z91.14 Patient's other noncompliance with medication regimen; Z68.41 Body mass index [BMI] 40.0-44.9, adult
CPT/HCPCS: 70450; 70551; 71010; 71020; 71250; 71275; 80048; 81003; 82040; 83880; 84484; 85025; 85027; 85048; 85610; 85730; 87040; 87077; 87086; 87186; 87502; 87641; 92523 GN; 92610 GN; 93005; 94010; 94667; 94668; 94760; 94799; 97530 GP; 99202; 99281; 99285; J0696; J1160; J1650; J1940; J2543; J2920; J3370; J7050; J7512

== ENCOUNTER 2018-03-07 08:52 | Inpatient (IN) | payer OTHER, BC ==
[~2018-03-07] VITALS: Ht 170.2 cm; Wt 96.7 kg
[~2018-03-07 08:52] MED LIST changes: +ALBUTEROL0.63 MG/3 IH; +ASPIRIN81 M2 PO; +CLARITIN,ALAVAR10 MG PO; +COUMADIN3 MG PO; +COUMADIN4 MG PO; +DULCOLAX10 MG PR; +FLONASE16 G1 BOTH NARES; +LOPRESSOR50 MG PO; +LOVENOX100 MG/1 M SC; +MIRALAX119 GM PO; +PHENERGAN-CODE120 ML PO; +PHILLIPS'400 MG/5 M PO; +PRILOSEC20 MG PO; +SALINE SOLUTIO360 ML IH; +TESSALON PERLE100 MG PO
[2018-03-07 09:45] LABS: HEMATOCRIT 36.1 % (36.0-46.0); HEMOGLOBIN 11.9 G/DL (11.9-15.5); MCH 28.9 PG (29.0-34.0); MCV 87.6 FL (83-99); PLATELET COUNT 316 K/uL (156-360); RBC DIS.WIDTH-CV 15.3 % (11.8-14.6); RBC DIS.WIDTH-SD 49.1 % (39-53); RED BLOOD COUNT 4.12 M/uL (3.80-5.20); WHITE BLOOD COUNT 8.1 K/uL (4.1-10.2)
[2018-03-07 09:58] LABS: CHLORIDE 108 mEq/L (99-109); POTASSIUM 3.8 mEq/L (3.7-5.4); SODIUM 140 mEq/L (136-147)
[2018-03-07 10:00] LABS: GLUCOSE 111 mg/dL (70-99)
[2018-03-07 10:03] LABS: GFR ESTIMATE (CALCULATED) 56 mL/min/
[2018-03-07 10:04] LABS: UREA NITROGEN (BUN) 15 mg/dL (9-23)
[2018-03-07 10:53] LABS: TOTAL PROTEIN 5.7 g/dL (6.4-8.3)
[2018-03-07 10:56] LABS: ALKALINE PHOSPHATASE 79 IU/L (3-129)
[2018-03-07 10:59] LABS: ALT (GPT) 13 IU/L (3-49); AST (GOT) 16 IU/L (2-34); DIRECT BILIRUBIN 0.5 mg/dL (0.0-0.3)
[2018-03-07 11:03] LABS: TROP-I INTERPRETATION NEGATIVE; TROPONIN-I 0.01 ng/mL (0.0-0.30)
[2018-03-07 11:09] LABS: INTER. NORMALIZED RATIO 1.8
[2018-03-07 11:18] LABS: APPEARANCE TURBID ((CLEAR)); BILIRUBIN NEGATIVE; BLOOD SMALL; COLOR AMBER ((YELLOW)); GLUCOSE (STRIP) NEGATIVE; KETONES NEGATIVE; LEUKOCYTES LARGE; NITRITE NEGATIVE; PROTEIN (STRIP) >=500; UROBILINOGEN 0.2 MG/DL (0.2-1.0)
[2018-03-07 11:42] LABS: BACTERIA 1+ /HPF; EPITHELIAL CELLS NONE SEEN /HPF; MUCUS NONE SEEN /LPF; RED BLOOD CELLS 0-5 /HPF (0-5); UCUL ADDED? YES; WHITE BLOOD CELLS TNTC /HPF (0-5)
[2018-03-07 12:09] LABS: COMMENTS - BLOOD GASES A+C+; DEVICE RA; SITE RR; TOTAL RESP RATE 21 resp/min
[2018-03-07 12:10] LABS: CARBOXY HGB 1.6 % (0-5); METHEMOGLOBIN 0.5 % (0-1.5); PCO2 39 mm Hg (35-45); PO2 74 mm Hg (80-100); pH 7.41 (7.35-7.45)
[2018-03-07 12:11] LABS: BASE EXCESS 0.1 mEq/L (-3 to +3); BICARBONATE 24.7 mEq/L (22-26)
[2018-03-07] MEDS ORDERED: FUROSEMIDE20 MG PO (17:15)
[2018-03-07] MEDS ORDERED: LOPRESSOR50 MG PO (17:16)
[2018-03-07] MEDS ORDERED: ZANTAC75 M1 PO (17:16)
[2018-03-07] MEDS ORDERED: SENNA-S TABLET1 EACH PO (17:17)
[2018-03-07] MEDS ORDERED: COUMADIN5 MG PO (17:18)
[2018-03-07] MEDS ORDERED: ZEASORB POWDER71 GM TP (17:19)
[2018-03-07] MEDS ORDERED: NYSTOP60 GM TP (17:20)
[2018-03-07 17:37] VITALS: BP 137/86
[2018-03-07 20:00] VITALS: BP 122/56
[2018-03-08 00:28] VITALS: BP 157/72
[2018-03-08 04:04] VITALS: BP 138/57
[2018-03-08 05:37] LABS: BASOPHIL (%) 0.6 % (0-1); BASOPHIL COUNT 0.1 K/uL (0-0.1); EOSINOPHIL (%) 5.1 % (0-5); EOSINOPHIL COUNT 0.5 K/uL (0-0.3); HEMATOCRIT 33.4 % (36.0-46.0); HEMOGLOBIN 10.6 G/DL (11.9-15.5); LYMPHOCYTE (%) 28.4 % (15-42); LYMPHOCYTE COUNT 2.7 K/uL (1.0-2.8); MCHC 31.7 G/DL (30.0-36.0); MCV 88.4 FL (83-99); MONOCYTE (%) 18.9 % (3-12); MONOCYTE COUNT 1.8 K/uL (0-0.8); NEUTROPHIL COUNT 4.4 K/uL (1.8-6.4); PLATELET COUNT 321 K/uL (156-360); RBC DIS.WIDTH-CV 15.2 % (11.8-14.6); RED BLOOD COUNT 3.78 M/uL (3.80-5.20); WHITE BLOOD COUNT 9.7 K/uL (4.1-10.2)
[2018-03-08 05:47] LABS: INTER. NORMALIZED RATIO 1.8
[2018-03-08 06:10] LABS: CHLORIDE 110 MEQ/L (99-109); CREATININE 0.9 MG/DL (0.6-1.3); GFR ESTIMATE (CALCULATED) > 59 mL/min/; GLUCOSE 122 mg/dL (70-99); POTASSIUM 3.7 MEQ/L (3.7-5.4); SODIUM 140 MEQ/L (136-147); UREA NITROGEN (BUN) 12 mg/dL (9-23)
[2018-03-08 09:36] VITALS: BP 111/56
[2018-03-08 11:24] VITALS: BP 121/57
[2018-03-08 16:22] VITALS: BP 143/64
[2018-03-08 20:00] VITALS: BP 139/64
[2018-03-09 00:02] VITALS: BP 119/76
[2018-03-09 04:07] VITALS: BP 148/72
[2018-03-09 06:21] LABS: INTER. NORMALIZED RATIO 1.6
[2018-03-09 08:08] VITALS: BP 127/60
[2018-03-09 12:26] VITALS: BP 149/64
[2018-03-09 17:27] VITALS: BP 177/80
[2018-03-09 19:40] VITALS: BP 150/69
[2018-03-10 00:11] VITALS: BP 148/78
[2018-03-10 05:15] VITALS: BP 130/65
[2018-03-10 05:25] LABS: BASOPHIL (%) 0.6 % (0-1); BASOPHIL COUNT 0.1 K/uL (0-0.1); EOSINOPHIL (%) 3.1 % (0-5); EOSINOPHIL COUNT 0.4 K/uL (0-0.3); HEMATOCRIT 30.7 % (36.0-46.0); HEMOGLOBIN 9.9 G/DL (11.9-15.5); IMMATURE GRANULOCYTE (%) 1.7 % (0.0-0.7); LYMPHOCYTE (%) 21.5 % (15-42); LYMPHOCYTE COUNT 2.7 K/uL (1.0-2.8); MCH 28.5 PG (29.0-34.0); MCHC 32.2 G/DL (30.0-36.0); MCV 88.5 FL (83-99); MONOCYTE (%) 14.6 % (3-12); MONOCYTE COUNT 1.9 K/uL (0-0.8); NEUTROPHIL (%) 58.5 % (45-76); NEUTROPHIL COUNT 7.4 K/uL (1.8-6.4); NRBC (%) 0.2 /100 WBC (0-0); PLATELET COUNT 308 K/uL (156-360); RBC DIS.WIDTH-CV 15.4 % (11.8-14.6); RBC DIS.WIDTH-SD 49.5 % (39-53); RED BLOOD COUNT 3.47 M/uL (3.80-5.20); WHITE BLOOD COUNT 12.7 K/uL (4.1-10.2)
[2018-03-10 05:31] LABS: INTER. NORMALIZED RATIO 1.9
[2018-03-10 05:53] LABS: CHLORIDE 111 MEQ/L (99-109); CREATININE 0.9 MG/DL (0.6-1.3); GFR ESTIMATE (CALCULATED) > 59 mL/min/; GLUCOSE 115 mg/dL (70-99); POTASSIUM 3.9 MEQ/L (3.7-5.4); SODIUM 140 MEQ/L (136-147); UREA NITROGEN (BUN) 12 mg/dL (9-23)
[2018-03-10 07:35] VITALS: BP 145/67
[2018-03-10 12:28] VITALS: BP 137/64
[2018-03-10 15:57] VITALS: BP 141/81
[2018-03-10 19:10] VITALS: BP 119/70
[2018-03-10 23:07] LABS: INTER. NORMALIZED RATIO 2.1
[2018-03-10 23:09] LABS: PTT 32.9 SEC (25-37)
[2018-03-11 03:16] VITALS: BP 121/68
[2018-03-11 07:20] VITALS: BP 112/82
[2018-03-11 07:37] LABS: BASOPHIL COUNT 0.1 K/uL (0-0.1); EOSINOPHIL (%) 6.3 % (0-5); EOSINOPHIL COUNT 0.8 K/uL (0-0.3); HEMATOCRIT 33.4 % (36.0-46.0); HEMOGLOBIN 10.4 G/DL (11.9-15.5); LYMPHOCYTE (%) 21.6 % (15-42); LYMPHOCYTE COUNT 2.6 K/uL (1.0-2.8); MCH 27.8 PG (29.0-34.0); MCHC 31.1 G/DL (30.0-36.0); MCV 89.3 FL (83-99); MONOCYTE (%) 11.9 % (3-12); MONOCYTE COUNT 1.5 K/uL (0-0.8); NEUTROPHIL (%) 57.2 % (45-76); NEUTROPHIL COUNT 6.9 K/uL (1.8-6.4); NRBC (%) 0.2 /100 WBC (0-0); PLATELET COUNT 340 K/uL (156-360); RBC DIS.WIDTH-CV 15.2 % (11.8-14.6); RBC DIS.WIDTH-SD 50.3 % (39-53); RED BLOOD COUNT 3.74 M/uL (3.80-5.20); WHITE BLOOD COUNT 12.1 K/uL (4.1-10.2)
[2018-03-11 08:04] LABS: CHLORIDE 112 MEQ/L (99-109); CREATININE 0.9 MG/DL (0.6-1.3); GFR ESTIMATE (CALCULATED) > 59 mL/min/; GLUCOSE 97 mg/dL (70-99); POTASSIUM 3.7 MEQ/L (3.7-5.4); SODIUM 143 MEQ/L (136-147); UREA NITROGEN (BUN) 11 mg/dL (9-23)
[2018-03-11 08:13] LABS: INTER. NORMALIZED RATIO 2.7
[2018-03-11 08:19] LABS: PTT 88.5 SEC (25-37)
[2018-03-11 11:15] VITALS: BP 131/89
[2018-03-11 15:17] VITALS: BP 114/59
[2018-03-11 19:18] VITALS: BP 133/60
[2018-03-12 05:20] LABS: HEMATOCRIT 33.1 % (36.0-46.0); HEMOGLOBIN 10.7 G/DL (11.9-15.5); MCH 28.5 PG (29.0-34.0); MCHC 32.3 G/DL (30.0-36.0); NRBC (%) 0.2 /100 WBC (0-0); PLATELET COUNT 381 K/uL (156-360); RBC DIS.WIDTH-SD 47.9 % (39-53); RED BLOOD COUNT 3.76 M/uL (3.80-5.20); WHITE BLOOD COUNT 10.3 K/uL (4.1-10.2)
[2018-03-12 05:28] LABS: INTER. NORMALIZED RATIO 2.5
[2018-03-12 09:00] VITALS: BP 147/76
[2018-03-12 11:41] VITALS: BP 112/70
[2018-03-12 15:16] VITALS: BP 145/70
[2018-03-13 00:31] VITALS: BP 131/71
[2018-03-13 05:17] VITALS: BP 136/71
[2018-03-13 06:43] LABS: INTER. NORMALIZED RATIO 2.3
[2018-03-13 07:50] VITALS: BP 141/67
[2018-03-13] MEDS ORDERED: BACTRIM,SEPT1 TABLET PO (09:52)
[2018-03-13 11:00] VITALS: BP 110/59
[2018-03-13 16:33] VITALS: BP 155/92
== END 2018-03-13 16:48 | DRG 689 ==
LOC: EME 08:52 → 4SOUTH 14:17 → EDOF 14:17 → ENRESERV 14:30 → 4SOUTH 16:50
PROVIDERS: Emergency Medicine; Internal Medicine; Physician Assistant Medical
DX: N39.0 Urinary tract infection, site not specified (principal); J69.0 Pneumonitis due to inhalation of food and vomit; G93.40 Encephalopathy, unspecified; I48.91 Unspecified atrial fibrillation; Z79.01 Long term (current) use of anticoagulants; Z96.652 Presence of left artificial knee joint; E66.9 Obesity, unspecified; I50.9 Heart failure, unspecified; I11.0 Hypertensive heart disease with heart failure; E78.5 Hyperlipidemia, unspecified; F03.90 Unspecified dementia, unspecified severity, without behavioral disturbance, psychotic disturbance, mood disturbance, and anxiety; B96.89 Other specified bacterial agents as the cause of diseases classified elsewhere; G91.2 (Idiopathic) normal pressure hydrocephalus; I69.320 Aphasia following cerebral infarction; I69.311 Memory deficit following cerebral infarction; R32 Unspecified urinary incontinence; Z79.82 Long term (current) use of aspirin; I25.10 Atherosclerotic heart disease of native coronary artery without angina pectoris
CPT/HCPCS: 36600; 70450; 70551; 71045; 71046; 80048; 80076; 81003; 82140; 82803; 83605; 84484; 85025; 85027; 85610; 85730; 87040; 87077; 87086; 87186; 92610 GN; 93005; 94799; 99281; 99285; G0378; J0696; J1940; J2543; J7030; J7050; S0028